=== PATIENT | male | born 1955 | race Caucasian/White ===

== ENCOUNTER 2018-04-07 07:18 | Outpatient (CLI) | payer BC ==
[~2018-04-07] VITALS: Ht 185.4 cm; Wt 106.8 kg
[~2018-04-07 07:18] MED LIST: ASPIRIN EC325 M1 PO; FLOMAX0.4 MG PO; GLUCOPHAGE500 MG PO; HYDROCHLOROTH12.5 M1 PO; JANUVIA100 MG PO; KLOR-CON 1010 MEQ PO; LONITEN10 MG PO; MOBIC7.5 MG PO; NORVASC10 MG PO; PRILOSEC20 MG PO; PRINIVIL20 MG PO; PROTONIX40 MG PO; TOPROL XL50 MG; ZOCOR20 MG PO
[2018-04-07 09:16] VITALS: BP 149/84; Ht 185.4 cm; Wt 106.8 kg
[2018-04-07 09:36] LABS: BASOPHILS 0.2 % (0-2); EOSINOPHILS 4.4 % (0-7); HEMATOCRIT 42.5 % (42.0-54.0); HEMOGLOBIN 15.8 g/dL (13.5-17.5); IMMATURE GRANULOCYTES 0.5 % (0-5); LYMPHOCYTES 28.2 % (15-50); MCH 31.1 pg (26.0-34.0); MCHC 37.2 g/dL (31.0-37.0); MCV 83.7 fL (80.0-100.0); MEAN PLATELET VOLUME 9.6 fL (7.4-10.4); MONOCYTES 8.4 % (2-11); NEUTROPHILS 58.3 % (40-80); PLATELET COUNT 123 10x3/uL (130-400); RBC 5.08 10x6/uL (4.20-6.10); RDW 13.1 % (11.5-14.5)
[2018-04-07 09:46] LABS: APTT 32.9 SECONDS (22.8-39.4); INR 1.06 (0.85-1.17); PROTIME 13.4 SECONDS (11.6-15.0)
[2018-04-07 10:04] LABS: ANION GAP 9.3 mmol/L (8-16); CARBON DIOXIDE 30.9 mmol/L (21.0-32.0); CREATININE - SERUM 1.1 mg/dL (0.6-1.3); POTASSIUM - SERUM 4.2 mmol/L (3.5-5.1)
== END 2018-04-07 15:45 ==
LOC: D.OPS 07:18 → D.SP 10:00 → D.OPS 10:00
PROVIDERS: Radiology Diagnostic Radiology
DX: C64.9 Malignant neoplasm of unspecified kidney, except renal pelvis (principal); C78.02 Secondary malignant neoplasm of left lung; Z01.812 Encounter for preprocedural laboratory examination

== ENCOUNTER 2020-05-12 08:49 | Day surgery (SDC) | payer MEDICARE, BC ==
[~2020-05-12] VITALS: Ht 185.4 cm; Wt 99.5 kg
[2020-05-12 09:19] LABS: BASOPHILS 0 % (0-2); EOSINOPHILS 3.5 % (0-7); HEMATOCRIT 41.9 % (42.0-54.0); HEMOGLOBIN 14.7 g/dL (13.5-17.5); IMMATURE GRANULOCYTES 0.2 % (0-5); LYMPHOCYTES 29.7 % (15-50); MCHC 35.1 g/dL (31.0-37.0); MCV 91.1 fL (80.0-100.0); MEAN PLATELET VOLUME 9.2 fL (7.4-10.4); MONOCYTES 5.4 % (2-11); NEUTROPHILS 61.2 % (40-80); PLATELET COUNT 105 10x3/uL (130-400); RDW 14.8 % (11.5-14.5); WBC 5.2 10x3/uL (4.8-10.8)
[2020-05-12 09:25] LABS: CALCIUM 8.6 mg/dL (8.5-10.1); CREATININE - SERUM 1.2 mg/dL (0.6-1.3)
[2020-05-12] MEDS ORDERED: ZOCOR20 MG PO (11:00)
[2020-05-12] MEDS ORDERED: GLIPIZIDE10 MG PO (11:00)
[2020-05-12] MEDS ORDERED: MOBIC7.5 MG PO (11:01)
[2020-05-12] MEDS ORDERED: LISINOPRIL20 MG PO (11:01)
[2020-05-12] MEDS ORDERED: NORVASC10 MG PO (11:01)
[2020-05-12 11:03] VITALS: BP 167/84; Ht 185.4 cm; Wt 99.5 kg
[2020-05-12] MEDS ORDERED: CABOMETYX PO (11:03)
--- NOTE | 2020-05-12 15:22 | NUR ---
1350 IV DC'D. CATHETER TIP INTACT. NO BLEEDING AT SITE. BANDAID APPLIED. 1415 DISCHARGE INSTRUCTIONS REVIEWED WITH PT WHO IS DRESSED AND READY TO GO HOME. PT VERBALIZES UNDERSTANDING OF INSTRUCTIONS. UNABLE TO GET AN APPOINTMENT FOR PT DUE TO COMPUTER ISSUES AT DR VELASQUEZ'S OFFICE. PT STATES HE WILL CALL DR VELASQUEZ OFFICE TOMORROW TO SCHEDULE A FOLLOW UP APPOINTMENT
--- NOTE | 2020-05-13 07:03 | OP ---
PATIENT NAME: EZEKIEL JOSEPH JR MEDICAL RECORD: [id number] :53 LOCATION:[facility] ADMISSION DATE: SURGEON: KAEL NEVAREZ DO DATE OF OPERATION: 05/12/2020 PROCEDURE: Esophagogastroduodenoscopy with biopsies and balloon dilation. INDICATIONS FOR PROCEDURE: Dysphagia, epigastric pain, heartburn, nausea and vomiting, abnormal weight loss. SCOPE: Olympus video gastroscope. MEDICATIONS: Propofol 200 mg IV per anesthesia. ESTIMATED BLOOD LOSS: Minimal. COMPLICATIONS: None. FINDINGS: Informed consent was given. The patient was made comfortable with the above medication. After reaching an adequate level of sedation by slow IV push, the patient was placed on his left side. The endoscope was advanced under direct visualization through the mouth to the second portion of the duodenum with ease. The esophagus appeared normal down to the distal esophagus and GE junction. At the GE junction, there was evidence of LA class A reflux-induced esophagitis and a nonobstructive Schatzki's ring. The ring was dilated up to 18 mm maximum diameter using a CRE balloon. The endoscope was advanced beyond the GE junction into the stomach and retroflexed to view the cardia, where a small sliding hiatal hernia was present. The fundus and body of the stomach appeared normal. The antrum and prepyloric regions appeared normal. Cold forcep biopsies were taken to submit for histopathology and to rule out the presence of H. pylori. The endoscope was advanced beyond the pylorus into the duodenum where there was some granularity noted throughout the villi of the mucosa. Cold forcep biopsies were taken to submit for histopathology. The endoscope was withdrawn from the patient. The patient tolerated the procedure well and there were no complications. IMPRESSION: 1. LA class A reflux-induced esophagitis. 2. Nonobstructing Schatzki ring located at the gastroesophageal junction. 3. Small sliding hiatal hernia. 4. Some granularity noted throughout the small bowel. Biopsies taken. PLAN AND RECOMMENDATIONS: 1. Discharge home when recovery parameters are met. 2. Follow up biopsy specimen results. 3. GERD diet and reflux precautions. 4. Continue current medications including pantoprazole 40 mg daily. 5. Repeat EGD as needed for dysphagia. 6. Proceed with colonoscopy as scheduled. TRANSINT:[id number] Voice Confirmation ID: [id number] DOCUMENT ID: [id number] OPERATIVE REPORT [id number] EZEKIEL JOSEPH JR, NATHAN A DO at 0703 CC: [id number] DICTATION DATE: 05/12/20 1256 CHEMISTRY LABORATORY TECHNICIAN: 05/12/20 [facility] 05/12/20 [place] [id number] [place] [id number]
== END 2020-05-12 14:21 | disposition home or self-care (01) ==
LOC: D.OPS 08:49
PROVIDERS: ATTEND Internal Medicine Gastroenterology
DX: R13.10 Dysphagia, unspecified (principal); R10.13 Epigastric pain; R11.2 Nausea with vomiting, unspecified; R63.4 Abnormal weight loss; E11.9 Type 2 diabetes mellitus without complications; E07.9 Disorder of thyroid, unspecified; Z79.84 Long term (current) use of oral hypoglycemic drugs

== ENCOUNTER 2020-07-11 06:29 | Day surgery (SDC) | payer MEDICARE, BC ==
[~2020-07-11] VITALS: Ht 185.4 cm; Wt 94.1 kg
--- NOTE | ~2020-07-11 | OP ---
PATIENT NAME: EZEKIEL JOSEPH JR MEDICAL RECORD: [id number] :53 LOCATION:[facility] ADMISSION DATE: SURGEON: KAEL NEVAREZ DO DATE OF OPERATION: 07/11/2020 PROCEDURE: Colonoscopy. INDICATION FOR PROCEDURE: Abnormal weight loss and nausea and vomiting. SCOPE: Olympus video pediatric colonoscope. MEDICATIONS: Propofol 820 mg IV per anesthesia. WITHDRAWAL TIME: 17 minutes. ESTIMATED BLOOD LOSS: None. COMPLICATIONS: None. FINDINGS: Informed consent was given. The patient was made comfortable with the above medication. After reaching an adequate level of sedation by slow IV push, the patient was placed on his left side. A digital rectal examination was performed and was normal. The endoscope was then advanced under direct visualization through the rectum to the cecum, confirmed by the presence of the appendiceal orifice and ileocecal valve. The endoscope was slowly withdrawn and the mucosa was carefully examined. The prep quality was poor to fair. An extensive amount of time was utilized irrigating and suctioning out remaining stool. There were no polyps visualized on today's examination. There were extensive diverticula throughout the entire colon. There was no evidence of diverticulitis. Retroflexion was performed in the rectum with visualization of grade I internal hemorrhoids without bleeding. The endoscope was withdrawn from the patient. The patient tolerated the procedure well and there were no complications. IMPRESSION: 1. Diverticulosis involving the entire colon. 2. Grade I internal hemorrhoids without bleeding. PLAN AND RECOMMENDATIONS: 1. Discharge home when recovery parameters are met. 2. High-fiber diet. 3. Continue current medications. 4. Notify the GI clinic if symptoms worsen or fail to improve. 5. Recall colonoscopy in 5 years. NTS:[id number] Voice Confirmation ID: [id number] DOCUMENT ID: [id number] OPERATIVE REPORT [id number] EZEKIEL JOSEPH JR KAEL NEVAREZ DO CC: [id number] DICTATION DATE: 07/11/20913 [employer] MATERIAL: 07/11/[address] [facility] 07/11/20 [facility] [address] [place] [address]
[~2020-07-11 06:29] MED LIST changes: +CABOMETYX PO; +GLIPIZIDE10 MG PO; +LISINOPRIL20 MG PO
[2020-07-11 07:11] LABS: HEMATOCRIT 43.3 % (42.0-54.0); MCH 31.3 pg (26.0-34.0); MCHC 34.6 g/dL (31.0-37.0); MCV 90.4 fL (80.0-100.0); MEAN PLATELET VOLUME 10.2 fL (7.4-10.4); PLATELET COUNT 123 10x3/uL (130-400); RBC 4.79 10x6/uL (4.20-6.10); RDW 14.2 % (11.5-14.5); WBC 4.7 10x3/uL (4.8-10.8)
[2020-07-11 07:36] LABS: ALBUMIN 3.9 g/dL (3.4-5.0); ANION GAP 11.6 mmol/L (8-16); BILIRUBIN - TOTAL 1.12 mg/dL (0.2-1.3); CALCIUM 8.9 mg/dL (8.5-10.1); CARBON DIOXIDE 27.4 mmol/L (21.0-32.0); CREATININE - SERUM 1.2 mg/dL (0.6-1.3); INR 1.02 (0.85-1.17); PROTEIN - SERUM 7.2 g/dL (6.4-8.2); PROTIME 13.4 SECONDS (11.6-15.0)
[2020-07-11] MEDS ORDERED: LEVOXYL75 MCG PO (07:56)
[2020-07-11 08:12] VITALS: BP 165/75; Ht 185.4 cm; Wt 94.1 kg
--- NOTE | 2020-07-11 09:59 | NUR ---
0955 IV DC'D. CATHETER TIP INTACT. NO BLEEDING AT SITE. COBAN DRESSING WRAPPED AROUND LEFT HAND. PT AND HIS FRIEND VOICE UNDERSTANDING OF DISCHARGE INSTRUCTIONS.
== END 2020-07-11 10:02 | disposition home or self-care (01) ==
LOC: D.OPS 06:29
PROVIDERS: Anesthesiology; ATTEND Internal Medicine Gastroenterology
DX: R11.2 Nausea with vomiting, unspecified (principal); R63.4 Abnormal weight loss; K57.30 Diverticulosis of large intestine without perforation or abscess without bleeding; K64.0 First degree hemorrhoids